=== PATIENT | female | born 1995 | race Hispanic/Latino ===

== ENCOUNTER 2020-12-10 20:13 | Emergency (ER) | payer MEDICARE ==
[2020-12-10 21:22] LABS: Hematocrit 43.7 % (30.3-42.9); Hemoglobin 14.6 gm/dl (10.1-14.3); Mean Corpuscular HGB Conc 33 % (30-34); Mean Corpuscular Volume 86 fl (79-97); Platelet Count 329 K/mm3 (140-440); Red Blood Count 5.07 M/mm3 (3.65-5.03); Red Cell Distribution Width 13.7 % (13.2-15.2)
[2020-12-10 21:44] LABS: Alanine Aminotransferase 47 units/L (7-56); Albumin 4.5 g/dL (3.9-5); Blood Urea Nitrogen 9 mg/dL (7-17); Calcium 9.3 mg/dL (8.4-10.2); Hemolysis Index 5
[2020-12-10 21:46] LABS: BUN/Creatinine Ratio 18
[2020-12-10 21:55] VITALS: BP 139/95
[2020-12-10 21:58] LABS: RBC Morphology Normal; Total Cells Counted 100
[2020-12-10 22:00] LABS: Large Platelets Rare; Platelet Estimate Cons
--- NOTE | 2020-12-10 22:04 | Emergency Department Report ---
ED General Adult HPI - General Chief complaint: Medical Clearance Stated complaint: MEDICAL CLEARANCE PUI?: No Time Seen by Provider: 12/10/20 21:51 Source: patient, RN notes reviewed Mode of arrival: Ambulatory Limitations: No Limitations - History of Present Illness Initial comments: The patient was evaluated in the emergency department for symptoms described in the history of present illness. He/she was evaluated in the context of the global COVID-19 pandemic, which necessitated consideration that the patient might be at risk for infection with the virus that causes COVID-19. Institutional protocols and algorithms that pertain to the evaluation of patients at risk for COVID-19 are in a state of rapid change based on information released by regulatory bodies including the CDC and federal and state organizations. These policies and algorithms were followed during the patient's care in the emergency department. Please note that these policies, procedures and recommendations changed on a rapid basis. Patient is a 25-year-old female. She is not known to myself previously. She reportedly has a history of schizophrenia and borderline personality disorder. She presents to the ER today with request for medical clearance for voluntary psychiatric evaluation. Patient states that she has been to [facility] in the past, and reports having had success at that facility. She therefore states that she drove herself 90 minutes from her home in [facility], to this [facility] [place], in order to go to [place] on a voluntary basis. She denies physical pain, cough, loss of taste, loss of smell, and urinary symptoms. The patient reports multiple negative Covid test recently. The patient reports that she is not homicidal or suicidal. She has hallucinations. She smokes tobacco, and recreationally consumes cannabis. She has not taken her psychiatric medication for the past 4 to 5 days. The patient endorses that she feels "a little anxious", but otherwise, has no physical pain at this time. -: days(s) Consistency: constant Improves with: none Worsens with: none Associated Symptoms: denies other symptoms - Related Data Allergies Allergy/AdvReac Type Severity Reaction Status Date / Time cefprozil [From Cefzil] Allergy Unknown Verified 12/10/20 20:59 lithium Allergy Unknown Verified 12/10/20 20:59 Sulfa (Sulfonamide Allergy Unknown Verified 12/10/20 20:59 Antibiotics) ED Review of Systems ROS: Stated complaint: MEDICAL CLEARANCE Other details as noted in HPI Comment: All other systems reviewed and negative Psychiatric: as per HPI, anxiety. denies: homicidal thoughts, suicidal thoughts ED Past Medical Hx - Past Medical History Previous Medical History?: Yes Hx Psychiatric Treatment: Yes (Schizophrenic, Borderline Personality) - Surgical History Past Surgical History?: No - Social History Smoking Status: Current Every Day Smoker Substance Use Type: Methamphetamines ED Physical Exam - General Limitations: No Limitations General appearance: alert, anxious - Head Head exam: Present: atraumatic, normocephalic - Eye Eye exam: Present: normal appearance, PERRL, EOMI. Absent: nystagmus - ENT ENT exam: Present: normal exam, normal orophraynx, mucous membranes moist, normal external ear exam - Neck Neck exam: Present: normal inspection, full ROM. Absent: tenderness, meningismus - Respiratory Respiratory exam: Present: normal lung sounds bilaterally. Absent: respiratory distress, wheezes, rales, rhonchi, stridor, decreased breath sounds - Cardiovascular Cardiovascular Exam: Present: normal rhythm, tachycardia (101 to 105 bpm), normal heart sounds. Absent: systolic murmur, diastolic murmur, rubs, gallop - GI/Abdominal GI/Abdominal exam: Present: soft. Absent: distended, tenderness, guarding, rebound, rigid, pulsatile mass - Extremities Exam Extremities exam: Present: normal inspection, full ROM, other (2+ pulses noted in the bilateral upper and lower extremities. There is no palpable cord. negative Homans sign. Muscular compartments are soft. The pelvis is stable.). Absent: pedal edema, calf tenderness - Back Exam Back exam: Present: normal inspection, full ROM. Absent: tenderness, CVA tenderness (R), CVA tenderness (L), paraspinal tenderness, vertebral tenderness - Neurological Exam Neurological exam: Present: alert, oriented X3, normal gait, other (No facial droop. Tongue midline. Extraocular movements intact bilaterally. Facial sensation intact to light touch in V1, V2, V3 distribution bilaterally. 5 and a 5 strength in 4 extremities. Sensation intact to light touch in 4 extremities.). Absent: motor sensory deficit - Psychiatric Psychiatric exam: Present: anxious. Absent: homicidal ideation, suicidal ideation - Skin Skin exam: Present: warm, dry, intact, normal color. Absent: rash ED Course Vital Signs 12/10/20 12/10/20 20:27 22:06 Temperature 99.0 F Pulse Rate 111 H Respiratory 18 Rate Blood Pressure 139/95 O2 Sat by Pulse 97 Oximetry O2 Sat by Pulse 100 Oximetry [ Digit-Finger] - Pulse Oximetry Interpretation Digit-Finger Initial Pulse Oximetry Readin O2 Sat by Pulse Oximetry: 100 Actions Taken: none ED Medical Decision Making - Lab Data Result diagrams: 12/10/20 20:47 12/10/20 20:47 Vital Signs 12/10/20 20:27 Temperature 99.0 F Pulse Rate 111 H Respiratory 18 Rate Blood Pressure 139/95 O2 Sat by Pulse 97 Oximetry Vital Signs 12/10/20 20:27 Temperature 99.0 F Pulse Rate 111 H Respiratory 18 Rate Blood Pressure 139/95 O2 Sat by Pulse 97 Oximetry Lab Results 12/10/20 12/10/20 12/10/20 Range/Units 20:47 20:47 20:47 WBC 7.2 (4.5-11.0) K/mm3 RBC 5.07 H (3.65-5.03) M/mm3 Hgb 14.6 H (10.1-14.3) gm/dl Hct 43.7 H (30.3-42.9) % MCV 86 (79-97) fl MCH 29 (28-32) pg MCHC 33 (30-34) % RDW 13.7 (13.2-15.2) % Plt Count 329 (140-440) K/mm3 Baso % (Auto) [employer] Sodium 137 (137-145) mmol/L Potassium 4.0 (3.6-5.0) mmol/L Chloride 103.3 (98-107) mmol/L Carbon Dioxide 24 (22-30) mmol/L Anion Gap 14 mmol/L BUN 9 (7-17) mg/dL Creatinine 0.5 L (0.6-1.2) mg/dL Estimated GFR > 60 ml/min BUN/Creatinine Ratio 18 % Glucose 81 (65-100) mg/dL Calcium 9.3 (8.4-10.2) mg/dL Magnesium (1.7-2.3) mg/dL Total Bilirubin 0.20 (0.1-1.2) mg/dL AST 29 (5-40) units/L ALT 47 (7-56) units/L Alkaline Phosphatase 102 (35-129) units/L Total Creatine Kinase (30-135) units/L Troponin T (0.00-0.029) ng/mL Total Protein 7.8 (6.3-8.2) g/dL Albumin 4.5 (3.9-5) g/dL Albumin/Globulin Ratio 1.4 % TSH (0.270-4.200) mlU/mL HCG, Qual Negative (Negative) Salicylates (2.8-20.0) mg/dL Acetaminophen (10.0-30.0) ug/mL Plasma/Serum Alcohol (0-0.07) % 12/10/20 12/10/20 12/10/20 Range/Units 20:47 20:56 20:56 WBC (4.5-11.0) K/mm3 RBC (3.65-5.03) M/mm3 Hgb (10.1-14.3) gm/dl Hct (30.3-42.9) % MCV (79-97) fl MCH (28-32) pg MCHC (30-34) % RDW (13.2-15.2) % Plt Count (140-440) K/mm3 Baso % (Auto) Sodium (137-145) mmol/L Potassium (3.6-5.0) mmol/L Chloride (98-107) mmol/L Carbon Dioxide (22-30) mmol/L Anion Gap mmol/L BUN (7-17) mg/dL Creatinine (0.6-1.2) mg/dL Estimated GFR ml/min BUN/Creatinine Ratio % Glucose (65-100) mg/dL Calcium (8.4-10.2) mg/dL Magnesium 1.90 (1.7-2.3) mg/dL Total Bilirubin (0.1-1.2) mg/dL AST (5-40) units/L ALT (7-56) units/L Alkaline Phosphatase (35-129) units/L Total Creatine Kinase 91 (30-135) units/L Troponin T < 0.010 (0.00-0.029) ng/mL Total Protein (6.3-8.2) g/dL Albumin (3.9-5) g/dL Albumin/Globulin Ratio % TSH 2.230 (0.270-4.200) mlU/mL HCG, Qual (Negative) Salicylates (2.8-20.0) mg/dL Acetaminophen (10.0-30.0) ug/mL Plasma/Serum Alcohol (0-0.07) % 12/10/20 12/10/20 12/10/20 Range/Units 20:56 20:56 20:56 WBC (4.5-11.0) K/mm3 RBC (3.65-5.03) M/mm3 Hgb (10.1-14.3) gm/dl Hct (30.3-42.9) % MCV (79-97) fl MCH (28-32) pg MCHC (30-34) % RDW (13.2-15.2) % Plt Count (140-440) K/mm3 Baso % (Auto) Sodium (137-145) mmol/L Potassium (3.6-5.0) mmol/L Chloride (98-107) mmol/L Carbon Dioxide (22-30) mmol/L Anion Gap mmol/L BUN (7-17) mg/dL Creatinine (0.6-1.2) mg/dL Estimated GFR ml/min BUN/Creatinine Ratio % Glucose (65-100) mg/dL Calcium (8.4-10.2) mg/dL Magnesium (1.7-2.3) mg/dL Total Bilirubin (0.1-1.2) mg/dL AST (5-40) units/L ALT (7-56) units/L Alkaline Phosphatase (35-129) units/L Total Creatine Kinase (30-135) units/L Troponin T (0.00-0.029) ng/mL Total Protein (6.3-8.2) g/dL Albumin (3.9-5) g/dL Albumin/Globulin Ratio % TSH (0.270-4.200) mlU/mL HCG, Qual (Negative) Salicylates 3.4 (2.8-20.0) mg/dL Acetaminophen 5.0 L (10.0-30.0) ug/mL Plasma/Serum Alcohol 0.04 (0-0.07) % - EKG Data -: EKG Interpreted by Sc EKG shows normal: sinus rhythm Rate: normal - EKG Data When compared to previous EKG there are: previous EKG unavailable 12/10/20 22:00 Sinus rhythm, tachycardia, 105 bpm, normal axis, QTC 460 ms, incomplete right bundle branch block, borderline high left ventricular voltage. Abnormal EKG. Not a STEMI. There is no prior for comparison - Medical Decision Making Differential diagnosis, including but limited to: Schizophrenia, borderline personality disorder, anxiety, medical clearance for psychiatric placement Assessment and plan: 25-year-old female, who is afebrile, with resolving tachycardia, heart rate 101 bpm on my examination, who is clinically sober, with a GCS of 15, exhibits decision-making capacity, who is anxious, but calm and cooperative. She is not homicidal or suicidal, and does not wish to harm hers elf or harm other people. She is somewhat internally preoccupied, and also endorses hallucinations. She has not been taking her psychiatric medication for the past 4 to 5 days. However, she is very goal driven, and tells me that she drove up approximately [facility], [place] [facility] [place]. She is able to tell me the name of her private psychiatry group, [facility], is able to tell me that she lives in [facility] [place], and does demonstrate decision-making capacity at this time. Denies fever, loss of taste and smell, and cough. Denies urinary symptoms. No medical indication for urinalysis at this time, as the patient denies urinary symptoms. She is clinically sober at this time, but does endorse recreational c annabis consumption. Reports multiple negative Covid tests in the past. A troponin was sent on this patient prior to my personal evaluation. Have very little suspicion for acute coronary syndrome/coronary artery disease on this patient, furthermore, the patient is low risk for major adverse cardiac event as per heart score, does not have any DVT or pulmonary embolism risk factors and is low risk by Wells criteria. heart score 0 points Low Score (0-3 points) Risk of MACE of 0.9-1.7%. Patient does not appear to have an emergent medical condition at this time which would preclude psychiatric evaluation, consultation. Discussed this with the patient, who verbalized understanding. Critical care attestation.: If time is entered above; I have spent that time in minutes in the direct care of this critically ill patient, excluding procedure time. ED Disposition Clinical Impression: General medical exam Disposition: DC-01 TO HOME OR SELFCARE Is pt being admited?: No Does the pt Need Aspirin: No Condition: Good Additional Instructions: Patient does not appear to have an emergent medical condition at this time that would preclude psychiatric evaluation, consultation, involuntary placement, if the patient so desires. We recommend that the patient follow-up with a primary care doctor within the next 4 to 6 weeks. Please return to the emergency room right away with new pain, worsened pain, migration of pain, projectile vomiting, change in mental status, confusion, inability to tolerate liquid feeds, homicidality, suicidality, overdose, or any new, worsened or different symptoms not present on the initial emergency room evaluation. Referrals: [facility] [Provider Group] - as needed
== END 2020-12-10 22:19 | disposition home or self-care (01) ==
LOC: ED 20:13
DX: F20.9 Schizophrenia, unspecified (principal); Z00.00 Encounter for general adult medical examination without abnormal findings; F17.200 Nicotine dependence, unspecified, uncomplicated; Z79.899 Other long term (current) drug therapy
CPT/HCPCS: 36415; 80053; 80320; 82550; 83735; 84443; 84484; 84703; 85007; 85025; 99283; G0480

== ENCOUNTER 2020-12-11 07:07 | Emergency (ER) | payer MEDICARE ==
[2020-12-11 07:22] VITALS: BP 143/89
== END 2020-12-11 09:40 | disposition left against medical advice (07) ==
LOC: ED 07:07
DX: Z00.8 Encounter for other general examination (principal); Z53.21 Procedure and treatment not carried out due to patient leaving prior to being seen by health care provider

== ENCOUNTER 2021-03-30 11:10 | Emergency (ER) | payer MEDICARE ==
[2021-03-30 11:57] VITALS: BP 127/72
--- NOTE | 2021-03-30 13:09 | Emergency Department Report ---
ED General Adult HPI - General Chief complaint: Skin Rash Stated complaint: RASH Time Seen by Provider: 03/30/21 12:16 Source: patient Mode of arrival: Ambulatory Limitations: No Limitations - History of Present Illness Initial comments: 25-year-old female patient presents with complaints of rash to her back with the past 3 weeks. Patient states that she has recently been in [facility] and is now staying at [place]. She states 5 days ago she was placed on doxycycline twice a day and the rash is not improved. She denies any pain or itchiness with the rash. She also states that she would like to be checked for HIV due to being a IV drug user. No other past medical history per patient. - Related Data Previous Rx's Medication Instructions Recorded Last Taken Type Triamcinolone Acetonide 60 ml TP TID PRN 7 Days #1 lotion 03/30/21 Unknown Rx [Triamcinolone 0.1% LOTION] Allergies Allergy/AdvReac Type Severity Reaction Status Date / Time cefprozil [From Cefzil] Allergy Unknown Verified 12/10/20 20:59 lithium Allergy Unknown Verified 12/10/20 20:59 Sulfa (Sulfonamide Allergy Unknown Verified 12/10/20 20:59 Antibiotics) ED Review of Systems ROS: Stated complaint: RASH Other details as noted in HPI Constitutional: denies: chills, diaphoresis, fever, malaise Respiratory: denies: cough, shortness of breath Cardiovascular: denies: chest pain Skin: rash Neurological: denies: headache, numbness, paresthesias Hematological/Lymphatic: denies: swollen glands ED Past Medical Hx - Past Medical History Previous Medical History?: No Hx Psychiatric Treatment: Yes (Schizophrenic, Borderline Personality) - Social History Smoking Status: Current Every Day Smoker Substance Use Type: Methamphetamines - Medications Home Medications: Home Medications Medication Instructions Recorded Confirmed Last Taken Type Triamcinolone Acetonide 60 ml TP TID PRN 7 Days #1 lotion 03/30/21 Unknown Rx [Triamcinolone 0.1% LOTION] ED Physical Exam - General Limitations: No Limitations General appearance: alert, in no apparent distress - Head Head exam: Present: atraumatic, normocephalic - Eye Eye exam: Present: normal appearance - Neck Neck exam: Present: normal inspection - Respiratory Respiratory exam: Absent: respiratory distress - Cardiovascular Cardiovascular Exam: Present: regular rate - Neurological Exam Neurological exam: Present: alert, oriented X3 - Psychiatric Psychiatric exam: Present: normal affect, normal mood - Skin Skin exam: Present: warm, dry, intact, normal color, rash (Scattered papular rash noted diffusely to back with some small pimples noted between; rash is nontender; no drainage or cellulitic changes noted) ED Course Vital Signs 03/30/21 11:56 Temperature 98.2 F Pulse Rate 75 Respiratory 14 Rate Blood Pressure 127/72 O2 Sat by Pulse 100 Oximetry ED Medical Decision Making - Medical Decision Making 25-year-old female patient presents with complaints of rash to her back with the past 3 weeks. Patient states that she has recently been [place] and is now staying at [place]. She states 5 days ago she was placed on doxycycline twice a day and the rash is not improved. She denies any pain or itchiness with the rash. She also states that she would like to be checked for HIV due to being a IV drug user. No other past medical history per patient. Papular scattered rash noted to back on exam that is nontender and non-itchy. No signs of bacterial infection. Will treat what triamcinolone and recommend follow-up with primary care for further evaluation. Patient also given health department information for HIV screening. Her vitals are within normal limits, she is well-appearing, she is stable for discharge home. Discussed signs symptoms that should prompt immediate return to the emergency department in detail patient verbalized understanding. Critical care attestation.: If time is entered above; I have spent that time in minutes in the direct care of this critically ill patient, excluding procedure time. ED Disposition Clinical Impression: Rash and nonspecific skin eruption Disposition: TO HOME OR SELFCARE Is pt being admited?: No Condition: Stable Instructions: Rash, Adult, [id number] Prescriptions: Triamcinolone Acetonide [Triamcinolone 0.1% LOTION] 60 ml TP TID PRN 7 Days #1 lotion PRN Reason: Rash Referrals: [facility] [Provider Group] - 3-5 Days
== END 2021-03-30 13:45 | disposition home or self-care (01) ==
LOC: ED 11:10
DX: R21 Rash and other nonspecific skin eruption (principal); F15.90 Other stimulant use, unspecified, uncomplicated; F17.200 Nicotine dependence, unspecified, uncomplicated; F25.9 Schizoaffective disorder, unspecified; Z79.899 Other long term (current) drug therapy; Z88.2 Allergy status to sulfonamides; Z88.8 Allergy status to other drugs, medicaments and biological substances
CPT/HCPCS: 99281

== ENCOUNTER 2021-04-06 19:28 | Emergency (ER) | payer MEDICARE ==
[2021-04-06 22:14] LABS: Basophils # (Auto) 0.1 K/mm3 (0.0-0.1); Basophils % (Auto) 0.7 % (0.0-1.8); Eosinophils # (Auto) 0.6 K/mm3 (0.0-0.4); Eosinophils % (Auto) 4.4 % (0.0-4.3); Hematocrit 41.1 % (30.3-42.9); Hemoglobin 13.8 gm/dl (10.1-14.3); Lymphocytes # (Auto) 4.5 K/mm3 (1.2-5.4); Mean Corpuscular HGB Conc 34 % (30-34); Mean Corpuscular Volume 87 fl (79-97); Monocytes # (Auto) 1.2 K/mm3 (0.0-0.8); Monocytes % (Auto) 9.2 % (0.0-7.3); Platelet Count 326 K/mm3 (140-440); Red Cell Distribution Width 13.7 % (13.2-15.2)
[2021-04-06 22:32] LABS: Alanine Aminotransferase 21 units/L (7-56); Albumin 4.3 g/dL (3.9-5); Blood Urea Nitrogen 11 mg/dL (7-17); Calcium 9.4 mg/dL (8.4-10.2); Hemolysis Index 14
[2021-04-06 22:34] LABS: BUN/Creatinine Ratio 18
[2021-04-06 22:59] LABS: Bilirubin,Urine NEG (Negative); Blood,Urine NEG (Negative); Color,Urine Yellow (Yellow); Mucus,Urine 1+ /HPF; Protein,Urine <15 mg/dL mg/dL (Negative); Urobilinogen,Urine < 2.0 mg/dL (<2.0); WBC,Urine < 1.0 /HPF (0.0-6.0)
--- NOTE | 2021-04-07 00:36 | Emergency Department Report ---
ED Abdominal Pain HPI - General Chief Complaint: Abdominal Pain Stated Complaint: ABDOMINAL PAIN Time Seen by Provider: 04/07/21 00:10 Source: patient Mode of arrival: Ambulatory Limitations: No Limitations - History of Present Illness Initial Comments: 25-year-old female [facility] emerge department complaining of having a posterior congestion resulting in coughing spells. States during 1 of a coughing spell she felt a pulling sensation to the her abdomen which was followed by pain and was continue to nag her over the past few days. She reports no nausea, no vomiting, no fever, chills, sweats, no hemoptysis, no hematemesis no hematochezia no hematuria no dysuria. MD Complaint: abdominal pain -: Gradual Location: diffuse (To the mid gastric region) Radiation: none Migration to: no migration Severity: mild Severity scale (0 -10): 7 Quality: dull Consistency: constant Improves With: nothing Worsens With: movement Associated Symptoms: denies other symptoms. denies: vomiting, diarrhea, constipation, dysuria, hematemesis, hematuria, anorexia, syncope - Related Data Previous Rx's Medication Instructions Recorded Last Taken Type Triamcinolone Acetonide 60 ml TP TID PRN 7 Days #1 lotion 03/30/21 Unknown Rx [Triamcinolone 0.1% LOTION] Allergies Allergy/AdvReac Type Severity Reaction Status Date / Time cefprozil [From Cefzil] Allergy Unknown Verified 12/10/20 20:59 lithium Allergy Unknown Verified 12/10/20 20:59 Sulfa (Sulfonamide Allergy Unknown Verified 12/10/20 20:59 Antibiotics) ED Review of Systems ROS: Stated complaint: ABDOMINAL PAIN Other details as noted in HPI Comment: All other systems reviewed and negative ED Past Medical Hx - Past Medical History Previous Medical History?: Yes Hx Psychiatric Treatment: Yes (Schizophrenic, Borderline Personality) - Surgical History Past Surgical History?: No - Social History Smoking Status: Never Smoker Substance Use Type: None - Medications Home Medications: Home Medications Medication Instructions Recorded Confirmed Last Taken Type Triamcinolone Acetonide 60 ml TP TID PRN 7 Days #1 lotion 03/30/21 Unknown Rx [Triamcinolone 0.1% LOTION] ED Physical Exam - General Limitations: No Limitations General appearance: alert, in no apparent distress - Head Head exam: Present: atraumatic, normocephalic - Eye Eye exam: Present: normal appearance, PERRL, EOMI - ENT ENT exam: Present: normal exam, normal orophraynx, mucous membranes moist, TM's normal bilaterally - Neck Neck exam: Present: normal inspection, full ROM - Respiratory Respiratory exam: Present: normal lung sounds bilaterally. Absent: respiratory distress, wheezes, rales, rhonchi, accessory muscle use, decreased breath sounds - Cardiovascular Cardiovascular Exam: Present: regular rate, normal rhythm. Absent: systolic murmur, diastolic murmur, rubs, gallop - GI/Abdominal GI/Abdominal exam: Present: soft, normal bowel sounds. Absent: tenderness, guarding, hypoactive bowel sounds, organomegaly, mass - Extremities Exam Extremities exam: Present: normal inspection, full ROM, normal capillary refill - Back Exam Back exam: Present: normal inspection. Absent: CVA tenderness (R), CVA tenderness (L) - Neurological Exam Neurological exam: Present: alert, oriented X3, CN II-XII intact, normal gait. Absent: motor sensory deficit, reflexes normal - Psychiatric Psychiatric exam: Present: normal affect, normal mood - Skin Skin exam: Present: warm, dry, intact, normal color. Absent: rash, diaphoretic, erythema, petechiae, pallor ED Course Vital Signs 04/06/21 21:23 Temperature 98.5 F Pulse Rate 60 Respiratory 20 Rate Blood Pressure 111/72 [Right] O2 Sat by Pulse 98 Oximetry ED Medical Decision Making - Lab Data Result diagrams: 04/06/21 21:33 04/06/21 21:33 - Medical Decision Making This patient presents with abdominal pain of unclear etiology. Their evaluation has not identified a emergent etiology for the abdominal pain. Specifically, given the very benign exam, normal laboratory studies, and lack of significant risk factors, I have a very low suspicion for appendicitis, ischemic bowel, bowel perforation, or any other life threatening disease. I have discussed with the patient the level of uncertainty with undifferentiated abdominal pain and clearly explained the need to follow-up as noted on the discharge instructions, or return to the Emergency Department immediately if the pain worsens, develops fever, persistent and uncontrollable vomiting, or for any new symptoms or concerns. I discussed with the patient that this presentation today for abdominal pain could represent a significant risk for an acute abdominal process. Although the tests in the ED were essentially normal, there is still a possibility of a process such as appendicitis, diverticulitis, cholecystitis, ulcer, early bowel obstruction, mesenteric ischemia, kidney stone, or even kidney infection which could subsequently cause disability or . The patient understands that they must return within 24 hours for a recheck or see their physician within 24 hours for re-exam due to the possibility of significant surgical or medical process. Critical care attestation.: If time is entered above; I have spent that time in minutes in the direct care of this critically ill patient, excluding procedure time. ED Disposition Clinical Impression: Abdominal pain Disposition: DC-01 TO HOME OR SELFCARE Is pt being admited?: No Does the pt Need Aspirin: No Condition: Stable Instructions: Abdominal Pain (ED) Referrals: PRIMARY CARE [Primary Care Provider] - 3-5 Days [facility] [Provider Group] - 3-5 Days
[2021-04-07 00:45] VITALS: BP 115/62
== END 2021-04-07 00:46 | disposition home or self-care (01) ==
LOC: ED 19:28
DX: R10.84 Generalized abdominal pain (principal); F20.9 Schizophrenia, unspecified; Z79.899 Other long term (current) drug therapy; Z88.2 Allergy status to sulfonamides; Z88.8 Allergy status to other drugs, medicaments and biological substances
CPT/HCPCS: 36415; 80053; 81001; 84703; 85025